=== PATIENT | female | born 1990 ===

== ENCOUNTER 2017-05-06 13:22 | Emergency (ER) | payer MEDICAID, OTHER ==
[2017-05-06 13:47] VITALS: BMI 26.6
[2017-05-06 13:50] VITALS: O2SAT 100
[2017-05-06 15:58] LABS: BASO % 0.4 % (0.0-2.0); EOS % 0.2 % (0.0-4.0); HEMOGLOBIN 13.6 g/dL (11.0-16.0); MEAN CELL VOLUME 89.5 fL (81.0-99.0); MEAN CORPUSCULAR HEMOGLOBIN 29.5 pg (27.0-31.0); MONO # 0.4 K/uL (0.0-0.8); MONO % 4.6 % (0.0-10.0); NEUT # 6.1 K/uL (1.8-7.0); NEUT % 70.8 % (50.0-75.0); NRBC % 0.1 % (0.0-2.0); RBC 4.61 Mil/uL (3.80-5.20); RED CELL DISTRIBUTION WIDTH 13.2 % (11.5-14.5); WHITE BLOOD COUNT 8.5 K/uL (4.8-10.8)
[2017-05-06 16:02] LABS: SQUAMOUS EPITHIAL 4 /hpf (0-5); URINE BACTERIA RARE (<OCC); URINE BILIRUBIN NEGATIVE (NEGATIVE); URINE BLOOD 1+ (NEGATIVE); URINE CLARITY Clear (Clear); URINE COLOR Yellow (YELLOW); URINE GLUCOSE (UA) NORMAL (Normal); URINE LEUKOCYTE ESTERASE NEG Leu/uL (Negative); URINE NITRATE NEGATIVE (NEGATIVE); URINE PROTEIN NEGATIVE (NEGATIVE); URINE UROBILINOGEN NORMAL mg/dL (0.2-1.0)
[2017-05-06 16:13] LABS: PROTHROMBIN TIME 11.7 SECONDS (9.7-12.2)
[2017-05-06 16:19] LABS: GFR AFRICAN-AMERICAN > 60; GFR NON-AFRICAN AMERICAN > 60
[2017-05-06 16:20] LABS: ALB/GLOB RATIO 1.2 (1.0-2.1); ALT/SGPT 23 U/L (9-52); AST/SGOT 25 U/L (14-36); BLOOD UREA NITROGEN 7 mg/dL (7-17)
[2017-05-06 16:21] LABS: CALCIUM 8.7 mg/dl (8.6-10.4)
--- NOTE | 2017-05-06 16:21 | C.PDOC ---
History Of Present Illness 27 year old female, , LMP 5/1, with no current care in this , who presents to the ER stating she is and complaining of vaginal bleeding. Denies abdominal pain, nausea, vomiting, dysuria, or hematuria. Time Seen by Provider: 05/06/17 15:31 Chief Complaint (Nursing): Female Genitourinary History Per: Patient History/Exam Limitations: no limitations Onset/Duration Of Symptoms: Days Current Symptoms Are (Timing): Still Present Associated Symptoms: denies: Fever, Chills, Nausea, Vomiting, Urinary Symptoms Alleviating Factors: None Recent travel outside of the [place]: No Abnormal Vaginal Bleeding: Yes : 2 Para: 0 Past Medical History Reviewed: Historical Data, Nursing Documentation, Vital Signs Vital Signs: Last Vital Signs Temp 98.3 F 05/06/17 13:47 Pulse 84 05/06/17 13:47 Resp 18 05/06/17 13:47 BP 106/67 05/06/17 13:47 Pulse Ox 100 05/06/17 17:52 - Medical History PMH: No Chronic Diseases Surgical History: Appendectomy Family History: States: Unknown Family Hx - Social History Hx Alcohol Use: No Hx Substance Use: No - Immunization History Hx Tetanus Toxoid Vaccination: No Hx Influenza Vaccination: No Hx Pneumococcal Vaccination: No Review Of Systems Constitutional: Negative for: Fever, Chills Cardiovascular: Negative for: Chest Pain, Palpitations Respiratory: Negative for: Cough, Shortness of Breath, SOB with Excertion Gastrointestinal: Negative for: Nausea, Vomiting, Abdominal Pain, Constipation Genitourinary: Positive for: Vaginal Bleeding. Negative for: Dysuria, Hematuria Musculoskeletal: Negative for: Back Pain Neurological: Negative for: Weakness, Numbness Physical Exam - Physical Exam Appears: Well, Non-toxic, No Acute Distress Skin: Normal Color, Warm, Dry Head: Atraumatic, Normacephalic Eye(s): bilateral: Normal Inspection, PERRL, EOMI Oral Mucosa: Moist Chest: Symmetrical, No Tenderness Cardiovascular: Rhythm Regular, No Murmur Respiratory: Normal Breath Sounds, No Rales, No Rhonchi, No Wheezing Gastrointestinal/Abdominal: Soft, No Tenderness Back: Normal Inspection, No CVA Tenderness Extremity: Normal ROM Neurological/Psych: Oriented x3, Normal Speech, Normal Cognition Gait: Steady ED Course And Treatment - Laboratory Results Result Diagrams: 05/06/17 15:52 05/06/17 15:52 O2 Sat by Pulse Oximetry: 100 (Room air) Pulse Ox Interpretation: Normal Medical Decision Making Medical Decision Making: Blood work and US ordered. 4:59PM U/s shows "IUP at 5 weeks 3 days. pole and cardiac activity are not yet identified. Follow-up with serial beta hcg and transvaginal ultrasound is suggested." Flow to b/l ovaries and cervix closed. Beta 32,599. CBC and CMP WNL. UA shows negative leukocytes and nitrates, but rare bacteria and due to will treat due to asymptomatic bacteruria. P:type/screen 5:49PM Blood type A+ Disposition - Disposition Referrals: Chad Weiss MD [Staff Provider] - Disposition Time: 17:00 Condition: GOOD Additional Instructions: Take vitamins. Take full course of antibiotics. Follow up with ob/ wild life photographer within 2 days for further evaluation. Your bhcg is currently 32,599. Prescriptions: Nitrofurantoin Macrocrystals [Macrobid] 100 mg PO BID #10 cap Vit No.126/Iron/Folic [Classic Tablet] 1 each PO DAILY #30 tablet Instructions: Threatened Miscarriage (ED), Urinary Tract Infection in (ED) Print Language: KHMER - Clinical Impression Clinical Impression: Bleeding in early - Scribe Statement The provider has reviewed the documentation as recorded by the Scribe Travis Gonzalez All medical record entries made by the Scribe were at my direction and personally dictated by me. I have reviewed the chart and agree that the record accurately reflects my personal performance of the history, physical exam, medical decision making, and the department course for this patient. I have also personally directed, reviewed, and agree with the discharge instructions and disposition.
--- NOTE | 2017-05-06 16:43 | US ---
PROCEDURE: OB Pelvic Ultrasound HISTORY: , bleeding COMPARISON: None available. FINDINGS: UTERUS: Intrauterine gestation identified. Gestational sac equivalent to 5 weeks 3 days. No pole yet identified. 3 mm yolk sac visualized. No detectable cardiac activity. Rose-gestational hemorrhage: None. Uterus measures 7.2 x 5.4 x 6.4 cm. No mass CERVIX: Long and closed. No cervical abnormality seen. RIGHT OVARY: Measures 4.2 x 3.3 x 3.2 cm. Corpus luteum noted, 1.9 cm. . Normal flow. LEFT OVARY: Measures 2.7 x 1.5 x 2.9 cm. No mass. Normal flow. FREE FLUID: None. OTHER FINDINGS: None. IMPRESSION: Intrauterine gestational sac approximately 5 weeks 3 days. pole and cardiac activity are not yet identified. Follow-up with serial beta HCG and transvaginal ultrasound is suggested.
[2017-05-06 18:11] VITALS: BP 113/71; PULSE 75; RESP 20; TEMP 98.6
== END 2017-05-06 18:11 | disposition home or self-care (01) ==
LOC: C.ER 13:22
DX: O20.8 Other hemorrhage in early pregnancy (principal); Z3A.01 Less than 8 weeks gestation of pregnancy

== ENCOUNTER 2017-05-09 20:27 | Emergency (ER) | payer MEDICAID, OTHER ==
[2017-05-09 20:27] VITALS: BMI 26.6
[2017-05-09 21:00] VITALS: TEMP 98.5
[2017-05-09 21:35] LABS: BASO % 0.5 % (0.0-2.0); EOS % 0.3 % (0.0-4.0); HEMOGLOBIN 13.7 g/dL (11.0-16.0); LYMPH # 2.5 K/uL (1.0-4.3); LYMPH % 25.8 % (20.0-40.0); MEAN CELL VOLUME 88.7 fL (81.0-99.0); MEAN CORPUSCULAR HEMOGLOBIN 29.5 pg (27.0-31.0); MEAN CORPUSCULAR HGB CONC 33.2 g/dL (33.0-37.0); MEAN PLATELET VOLUME 8.9 fL (7.2-11.7); MONO # 0.5 K/uL (0.0-0.8); MONO % 5.6 % (0.0-10.0); NEUT # 6.5 K/uL (1.8-7.0); NEUT % 67.8 % (50.0-75.0); RBC 4.64 Mil/uL (3.80-5.20); RED CELL DISTRIBUTION WIDTH 13.3 % (11.5-14.5); WHITE BLOOD COUNT 9.6 K/uL (4.8-10.8)
[2017-05-09 21:42] LABS: SQUAMOUS EPITHIAL 5 /hpf (0-5); URINE BACTERIA RARE (<OCC); URINE BILIRUBIN NEGATIVE (NEGATIVE); URINE BLOOD NEGATIVE (NEGATIVE); URINE CLARITY Hazy (Clear); URINE COLOR Yellow (YELLOW); URINE GLUCOSE (UA) NORMAL (Normal); URINE LEUKOCYTE ESTERASE 1+ Leu/uL (Negative); URINE NITRATE NEGATIVE (NEGATIVE); URINE PROTEIN NEGATIVE (NEGATIVE); URINE UROBILINOGEN NORMAL mg/dL (0.2-1.0)
--- NOTE | 2017-05-09 23:39 | C.PDOC ---
History Of Present Illness Pt c/o low back pain. Time Seen by Provider: 05/09/17 21:13 Chief Complaint (Nursing): Female Genitourinary History Per: Patient, Family Onset/Duration Of Symptoms: Hrs (since this morning) Current Symptoms Are (Timing): Still Present Severity: Moderate Quality Of Discomfort: "Pain" Alleviating Factors: None Additional History Per: Prior Records Abnormal Vaginal Bleeding: Yes Past Medical History Reviewed: Historical Data, Nursing Documentation, Vital Signs Vital Signs: Last Vital Signs Temp 98.5 F 05/09/17 20:57 Pulse 82 05/09/17 20:57 Resp 18 05/09/17 20:57 BP 118/72 05/09/17 20:57 Pulse Ox 100 05/09/17 20:57 - Medical History PMH: No Chronic Diseases Other PMH: Pt is Surgical History: Appendectomy Family History: States: Unknown Family Hx - Social History Hx Tobacco Use: No Hx Alcohol Use: No Hx Substance Use: No - Immunization History Hx Tetanus Toxoid Vaccination: No Hx Influenza Vaccination: No Hx Pneumococcal Vaccination: No Review Of Systems Except As Marked, All Systems Reviewed And Found Negative. Constitutional: Negative for: Fever, Weakness Cardiovascular: Negative for: Chest Pain Respiratory: Negative for: Shortness of Breath Gastrointestinal: Negative for: Vomiting, Diarrhea Genitourinary: Positive for: Vaginal Bleeding, Pelvic Pain Musculoskeletal: Positive for: Back Pain (low). Negative for: Neck Pain Skin: Negative for: Rash Neurological: Negative for: Weakness, Numbness, Seizures, Altered Mental Status Physical Exam - Physical Exam Appears: Non-toxic, No Acute Distress Skin: Normal Color, Warm, Dry, No Rash Head: Atraumatic, Normacephalic Eye(s): bilateral: Normal Inspection, PERRL, EOMI Neck: Normal ROM, Supple Cardiovascular: Rhythm Regular Respiratory: Normal Breath Sounds, No Accessory Muscle Use Gastrointestinal/Abdominal: Soft, Tenderness (mild suprapubic), No Guarding, No Rebound Back: No CVA Tenderness, No Vertebral Tenderness Extremity: Normal ROM Neurological/Psych: Oriented x3, Normal Motor, Normal Sensation ED Course And Treatment - Laboratory Results Result Diagrams: 05/09/17 21:31 Interpretation Of Abnormal: Beta hcg increasing appropriately. O2 Sat by Pulse Oximetry: 100 Pulse Ox Interpretation: Normal - CT Scan/US Pelvic US Other Rad Studies (CT/US): Read By Radiologist, Radiology Report Reviewed CT/US Interpretation: Single live IUP. Reassessment Condition: Improved Disposition Counseled Patient/Family Regarding: Studies Performed, Diagnosis, Need For Followup, Rx Given - Disposition Referrals: Usama Clarke [Staff Provider] - Rajan [facility] [Outside] [facility] [Outside] Disposition: HOME/ ROUTINE Disposition Time: 23:40 Condition: STABLE Additional Instructions: Drink plenty of fluids. Follow up with an [facility] doctor within 1 week for further evaluation and treatment. Return to the ER if you develop fever, vomiting, dizziness, heavy bleeding, severe pain, worsening of symptoms or if you have any other concerns. Prescriptions: Acetaminophen [Tylenol Extra Strength] 2 tab PO Q6 PRN #30 tablet PRN Reason: Pain, Moderate (4-7) Instructions: Threatened Miscarriage (ED) Print Language: NAMIBIAN - Clinical Impression Clinical Impression: Threatened in first trimester, Complex cyst of right ovary, Low back pain
[2017-05-09 23:51] VITALS: BP 110/70; PULSE 70; RESP 14; O2SAT 99
--- NOTE | 2017-05-10 09:59 | US ---
PROCEDURE: 1st trimester ultrasound HISTORY: Pain/bleeding COMPARISON: 05/06/2017 TECHNIQUE: Standard protocol for this study/examination. FINDINGS: LMP: 03/26/2017 Prior examinations from the current : 05/06/2017 TECHNIQUE: Real-time 2D imaging, duplex and color Doppler. FINDINGS: Cardiac activity: Present Rate: 103 BPM Measurements: [place] rump length: 0.35 cm Gestational age based on CRL 6 weeks Gestational age based on gestational sac measurement 6 weeks Gestational age derived from LMP: 10 weeks 1 day SASKIA based on LMP: 12/04/2017 SASKIA based on biometry: 01/02/2018 Gestational concordance documented Yolk sac identified Uterus: Unremarkable. No Cervical abnormalities: Negative examination for cervical dilatation or effacement. Subchorionic hemorrhage: None ADNEXA: Right: 2.8 x 3.8 cm. Complex cyst 1.6 x 2.4 cm likely corpus luteum cyst. Normal Doppler arterial waveform documented. Left: 1.6 x 2.5 cm. Normal Doppler arterial waveform documented Fluid in the cul-de-sac: None IMPRESSION: Single live intrauterine gestation. bradycardia noted. Complex likely hemorrhagic cyst right ovary Concordant results (preliminary interpretation) provided by [facility]. Procedure Completed: 22:34 Preliminary ([facility]) Report: Dictated and Authenticated: 23:03 Final Interpretation: 09:57. May 10, 2017.
== END 2017-05-09 23:51 | disposition home or self-care (01) ==
LOC: SUPCPDRO 20:27 → C.ER 20:27
DX: O20.0 Threatened abortion (principal); O34.81 Maternal care for other abnormalities of pelvic organs, first trimester; N83.201 Unspecified ovarian cyst, right side; Z3A.10 10 weeks gestation of pregnancy

== ENCOUNTER 2017-06-05 14:20 | Observation (INO) | payer MEDICAID, OTHER | END 2017-06-05 22:40 | disposition home or self-care (01) | LOC: C.ER 14:20 → C.9E 17:34 | PROVIDERS: ADMIT Obstetrics & Gynecology | CPT/HCPCS: 59820; 76805; 76817; 80048; 81001; 84702; 84703; 85025; 86850; 86900; 96360; G0378; J7040; J7120 ==

== ENCOUNTER 2017-06-19 14:15 | Emergency (ER) | payer MEDICAID, OTHER ==
[2017-06-19 14:15] VITALS: BMI 26.6
[2017-06-19 14:24] VITALS: RESP 20; TEMP 99.1
--- NOTE | 2017-06-19 14:38 | C.PDOC ---
History Of Present Illness 27 y/o female presents to ED who was evaluated in this ER 2 weeks ago for demise, and admitted for D&C. Patient states she was seen at [facility] for follow up today, and reports some vaginal bleeding (similar to menstrual period) with abdominal cramping. Bimanual exam performed at the clinic , which showed old dark blood and clots. Repeated urine test was positive, prompting ER visit today. Otherwise, denies fever, chills, nausea, vomiting, diarrhea, urinary symptoms, or other complaints. Time Seen by Provider: 06/19/17 14:25 Chief Complaint (Nursing): Abdominal Pain History Per: Patient History/Exam Limitations: no limitations Onset/Duration Of Symptoms: Days Current Symptoms Are (Timing): Still Present Location Of Pain/Discomfort: Suprapubic Radiation Of Pain To:: None Quality Of Discomfort: Cramping Associated Symptoms: denies: Fever, Chills, Nausea, Vomiting, Diarrhea, Back Pain, Urinary Symptoms Recent travel outside of the [place]: No Abnormal Vaginal Bleeding: Yes Past Medical History Reviewed: Historical Data, Nursing Documentation, Vital Signs Vital Signs: Last Vital Signs Temp 99.1 F 06/19/17 14:20 Pulse 96 H 06/19/17 14:20 Resp 20 06/19/17 14:20 BP 150/90 06/19/17 14:20 Pulse Ox 99 06/19/17 14:38 - Medical History PMH: Sexually Transmitted Disease (HSV-2) Surgical History: Appendectomy Family History: States: Unknown Family Hx - Social History Hx Tobacco Use: No Hx Alcohol Use: No Hx Substance Use: No - Immunization History Hx Tetanus Toxoid Vaccination: No Hx Influenza Vaccination: No Hx Pneumococcal Vaccination: No Review Of Systems Except As Marked, All Systems Reviewed And Found Negative. Constitutional: Negative for: Fever, Chills Respiratory: Negative for: Cough, Wheezing Gastrointestinal: Positive for: Abdominal Pain. Negative for: Nausea, Vomiting Genitourinary: Positive for: Vaginal Bleeding. Negative for: Dysuria Skin: Negative for: Rash Neurological: Negative for: Headache, Dizziness Physical Exam - Physical Exam Appears: Non-toxic, No Acute Distress Skin: Normal Color, Warm, Dry Head: Atraumatic, Normacephalic Oral Mucosa: Moist Chest: Symmetrical Cardiovascular: Rhythm Regular Respiratory: Normal Breath Sounds, No Rales, No Rhonchi, No Wheezing Gastrointestinal/Abdominal: Soft, Tenderness (mild, suprapubic), No Distention, No Guarding, No Rebound Back: Normal Inspection Extremity: Normal ROM, Capillary Refill (< 2 sec.) Neurological/Psych: Oriented x3, Normal Speech, Normal Cognition ED Course And Treatment - Laboratory Results Result Diagrams: 06/19/17 14:45 06/19/17 14:45 Lab Interpretation: No Acute Changes Interpretation Of Abnormal: BHCG decreased to 169 O2 Sat by Pulse Oximetry: 99 (RA) Pulse Ox Interpretation: Normal - CT Scan/US pelvic ultrasound Other Rad Studies (CT/US): Read By Radiologist, Radiology Report Reviewed CT/US Interpretation: Accession No. : [id number]. Patient Name / ID : NATALYA GONG / [id number]. Exam Date : 06/19/2017 15:15:22 ( Approved ). Study Comment : Sex / Age : F / 27Y. Creator : Bebe Marquis MD. Dictator : Chemical Handler : Safety Trainer : Bebe Marquis MD. Approver2 : Report Date : 06/19/2017 15:56:39. My Comment : . HISTORY: r/o retained products. COMPARISON: None available. TECHNIQUE: Real-time transabdominal pelvic ultrasound was performed. In addition a transvaginal pelvic ultrasound was necessary to better depict pelvic anatomy. FINDINGS: UTERUS: Measures 7.9 x 4.0 x 5.1 cm. Retroverted. ENDOMETRIUM: Measures 5 mm in diameter. CERVIX: Cervix length measures approximately 2.5 cm. Tiny nabothian cyst. RIGHT OVARY: Measures 3.0 x 1.8 x 3.2 cm. Blood flow is demonstrated. LEFT OVARY: Measures 2.6 x 2.1 x 1.7 cm. Blood flow is demonstrated. FREE FLUID: Small pelvic free fluid. OTHER FINDINGS: None. IMPRESSION: Small pelvic free fluid. Progress Note: Labs, ultrasound ordered. Reevaluation Time: 16:12 Reassessment Condition: Unchanged Disposition Counseled Patient/Family Regarding: Studies Performed, Diagnosis, Need For Followup - Disposition Referrals: Rajan Dam[facility] [Outside] Disposition: HOSPITALIZED Disposition Time: 16:12 Condition: STABLE Forms: Gen Discharge Inst Fijian, [place] (Fijian) Print Language: BOTSWANAN - Clinical Impression Clinical Impression: Vaginal bleeding - Scribe Statement The provider has reviewed the documentation as recorded by the Scribe SM All medical record entries made by the Scribe were at my direction and personally dictated by me. I have reviewed the chart and agree that the record accurately reflects my personal performance of the history, physical exam, medical decision making, and the department course for this patient. I have also personally directed, reviewed, and agree with the discharge instructions and disposition.
[2017-06-19 14:48] LABS: BASO % 0.5 % (0.0-2.0); EOS % 0.5 % (0.0-4.0); HEMATOCRIT 38.6 % (34.0-47.0); LYMPH # 2.5 K/uL (1.0-4.3); LYMPH % 32.5 % (20.0-40.0); MEAN CELL VOLUME 88.2 fL (81.0-99.0); MEAN CORPUSCULAR HEMOGLOBIN 29.4 pg (27.0-31.0); MEAN CORPUSCULAR HGB CONC 33.4 g/dL (33.0-37.0); MEAN PLATELET VOLUME 8.7 fL (7.2-11.7); MONO # 0.4 K/uL (0.0-0.8); MONO % 4.9 % (0.0-10.0); RED CELL DISTRIBUTION WIDTH 12.6 % (11.5-14.5); WHITE BLOOD COUNT 7.5 K/uL (4.8-10.8)
[2017-06-19 14:58] LABS: CHLORIDE 100 mmol/L (98-107); POTASSIUM 3.9 mmol/L (3.6-5.2); SODIUM 137 mmol/L (132-148)
[2017-06-19 15:01] LABS: ALB/GLOB RATIO 1.5 (1.0-2.1); ALKALINE PHOSPHATASE 45 U/L (38-126); ALT/SGPT 28 U/L (9-52); AST/SGOT 20 U/L (14-36); BILIRUBIN,TOTAL 0.5 mg/dL (0.2-1.3); BLOOD UREA NITROGEN 8 mg/dL (7-17); CARBON DIOXIDE 24 mmol/L (22-30); GFR AFRICAN-AMERICAN > 60; GLUCOSE,RANDOM 85 mg/dL (65-105); TOTAL PROTEIN 6.8 g/dL (6.3-8.3)
--- NOTE | 2017-06-19 15:58 | US ---
HISTORY: r/o retained products COMPARISON: None available. TECHNIQUE: Real-time transabdominal pelvic ultrasound was performed. In addition a transvaginal pelvic ultrasound was necessary to better depict pelvic anatomy. FINDINGS: UTERUS: Measures 7.9 x 4.0 x 5.1 cm. Retroverted. ENDOMETRIUM: Measures 5 mm in diameter. CERVIX: Cervix length measures approximately 2.5 cm. Tiny nabothian cyst. RIGHT OVARY: Measures 3.0 x 1.8 x 3.2 cm. Blood flow is demonstrated. LEFT OVARY: Measures 2.6 x 2.1 x 1.7 cm. Blood flow is demonstrated. FREE FLUID: Small pelvic free fluid. OTHER FINDINGS: None. IMPRESSION: Small pelvic free fluid.
[2017-06-19 16:33] VITALS: BP 118/75; PULSE 74; O2SAT 100
== END 2017-06-19 16:32 | disposition short-term general hospital (02) ==
LOC: C.ER 14:15
DX: N93.9 Abnormal uterine and vaginal bleeding, unspecified (principal)